=== PATIENT | male | born 1970 | race Caucasian/White ===

== ENCOUNTER → 2019-10-15 | Outpatient (CLI) | payer OTHER ==
--- NOTE | 2019-10-15 13:28 | Diagnostic Imaging Report ---
PROCEDURE: MRI lumbar spine without contrast. TECHNIQUE: Multiplanar, multisequence MRI of the lumbar spine was performed without contrast. INDICATION: Injury to the low back after heavy lifting. COMPARISON: Lumbar spine radiographs on 08/22/2015. FINDINGS: 5 lumbar type vertebral bodies are visualized with the last well-formed disc space designated L5-S1. No acute fracture or dislocation is seen in the lumbar spine. Alignment is anatomic. Vertebral body heights and disc spaces are well-maintained. The bone marrow signal is normal. The conus terminates at the L1 level. No masses are seen associated with the conus or nerve roots of the cauda equina. No epidural collections are identified. 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 Multilevel degenerative changes are seen in the lumbar spine with disc bulges, facet hypertrophy, and buckling of the ligamentum flavum. T12-L1: No significant spinal canal or foraminal stenosis. L1-L2: No significant spinal canal or foraminal stenosis. L2-L3: Left foraminal disc bulge, facet hypertrophy, and buckling of ligamentum flavum results in no significant spinal canal narrowing and moderate left and mild right foraminal stenosis. L3-L4: Broad-based disc bulge, facet hypertrophy, and buckling of ligamentum flavum results in no significant spinal canal narrowing and moderate bilateral foraminal stenosis. L4-L5: Central disc bulge, facet hypertrophy, and buckling of the ligamentum flavum results in no significant spinal canal narrowing and moderate bilateral foraminal stenosis. L5-S1: Broad-based disc bulge, facet hypertrophy, and buckling of the ligamentum flavum results in no significant spinal canal stenosis and no significant foraminal stenosis. Paravertebral soft tissues are unremarkable. IMPRESSION: 1. No acute fracture or dislocation in the lumbar spine. 2. Multilevel degenerative changes in the lumbar spine, greatest at L2-L3, L3-L4, and L4-L5. Dictated by: Dictated on workstation # [id number]
== END ==
LOC: RAD 12:06
PROVIDERS: ATTEND Preventive Medicine Occupational Medicine
DX: M47.816 Spondylosis without myelopathy or radiculopathy, lumbar region (principal); X50.0XXA Overexertion from strenuous movement or load, initial encounter
CPT/HCPCS: 72148